=== PATIENT | female | born 1990 | race Caucasian/White ===

== ENCOUNTER 2016-12-25 08:16 | Outpatient (CLI) | payer OTHER ==
[2016-12-25] MEDS ORDERED: GADOBUTROL 10 MMOL/10 ML VIAL ONE (08:37)
[2016-12-25] MEDS ORDERED: GADOBUTROL 10 MMOL/10 ML VIAL IVP ONE (09:37)
--- NOTE | 2016-12-25 22:27 | MRI Report ---
EXAM: MRI BRAIN WITHOUT AND WITH CONTRAST EXAM DATE: 12/25/2016 10:00 AM. CLINICAL HISTORY: Transient vision loss. COMPARISON: None. TECHNIQUE: Multiplanar, multisequence T1-weighted and fluid-sensitive MR sequences of the brain were performed. Sequences optimized for routine and orbits evaluation. Other: Additional images through th e orbits were obtained before and after contrast administration. IV Contrast: 9 mL of Gadavist. FINDINGS: Brain Volume: Normal for age. Parenchyma: No acute hemorrhage, mass, or infarct. No white matter lesions identified. No abnormal en hancement. Ventricles/Cisterns: No hydrocephalus. No abnormal extra-axial fluid collection or hemorrhage. Orbits: The globes are symmetric in size. There is no evidence of intraocular hemorrhage, intraocular mass lesion, or lens dislocation. The extraocular muscles, superior ophthalmic veins, and optic nerv es are symmetric and normal in appearance. No abnormal enhancement is noted on postcontrast images. Sella Turcica: The pituitary gland, cavernous sinuses, suprasellar cistern and optic chiasm are unrem arkable. IAC: Symmetric and unremarkable. Vasculature: Normal signal flow void is seen in the major arterial structures at the skull base. The dural sinuses are patent and enhance normally. Sinuses: Moderate mucosal thickening is noted in the maxillary sinuses. The mastoid sinuses are not o pacified. Bones: No focal pathologic appearing marrow signal changes. IMPRESSION: 1.No acute infarct, intracranial mass lesion, or hemorrhage. 2. Normal bilateral orbits. 3. Moderate mucosal thickening in the maxillary sinuses. [facility] Referring Provider Line: [phone] SITE ID: [id number]
== END 2016-12-25 08:17 | disposition home or self-care (01) ==
LOC: DI 08:16
PROVIDERS: ATTEND Family Medicine
DX: R51 Headache (principal)
CPT/HCPCS: 70553; A9585

== ENCOUNTER 2016-12-28 07:46 | Outpatient (CLI) | payer OTHER ==
--- NOTE | 2016-12-28 09:35 | MRI Report ---
EXAM: MR VENOGRAM BRAIN EXAM DATE: 12/28/2016 08:12 AM. CLINICAL HISTORY: HEADACHE AND ELEVATED OPTIC NERVE. COMPARISON: MRI brain 12/25/2016 TECHNIQUE: Multiplanar, multisequence MRV sequences of the brain were performed. Other: None. Post-pr ocessing: Multiplanar 3D MIP reconstructions. IV Contrast: None. FINDINGS: CENTRAL Superior Sagittal Sinus: Patent. No thrombus or stenosis evident. Inferior Sagittal Sinus: Patent. No thrombus or stenosis evident. Straight Sinus: Patent. No thrombus or stenosis evident. RIGHT Transverse Sinus: There is moderate loss of flow-related enhancement of the right transverse sinus at its midportion. The right transverse sinus appears dominant. Sigmoid Sinus: Patent. No thrombus or stenosis evident. Other Veins: Patent. No thrombus or stenosis evident. LEFT Transverse Sinus: There is moderate loss of flow-related enhancement of the left transverse sinus at its midportion. Sigmoid Sinus: evident. Other Veins: Patent. No thrombus or stenosis evident. Other: Moderate to severe right and [id number] left maxillary sinus mucosal thickening. IMPRESSION: 1. Moderate loss of flow-related enhancement involving the transverse sinuses bilaterally at their mi dportion. This is nonspecific and may be artifactual, the sinuses appeared patent on the prior MRI fr om 12/25/2016. Contrast-enhanced CT venogram could used as a confirmatory study, as clinically indica milind. 2. Otherwise clearly patent dural venous sinuses. [facility] Referring Provider Line: [phone] SITE ID: [id number]
== END 2016-12-28 07:47 | disposition home or self-care (01) ==
LOC: DI 07:46
PROVIDERS: ATTEND Family Medicine
DX: R51 Headache (principal)
CPT/HCPCS: 70544